=== PATIENT | female | born 1930 | race Caucasian/White ===

== ENCOUNTER 2017-05-03 06:20 | Emergency (ER) | payer MEDICARE, OTHER ==
--- NOTE | 2017-05-03 06:26 | ER Document Report ---
ED Respiratory Problem - General Mode of Arrival: Medic Information source: Patient, Emergency Med Personnel TRAVEL OUTSIDE OF THE [place] IN LAST 30 DAYS: No - HPI Patient complains to provider of: Short of breath Onset: Yesterday - 2300 Duration: Worse/persistent Severity: Severe Short of Breath: Moderate Similar symptoms previously: Yes Recently seen / treated by doctor: Yes <SILVIA RAJAN - Last Filed: 05/03/17 08:01> <MIKHAIL WAN - Last Filed: 05/03/17 09:22> - General Stated Complaint: DIFFICULTY BREATHING Time Seen by Provider: 05/03/17 06:25 Notes: Patient is an 86-year-old female that presents to the emergency department today secondary to absent breath sounds on the left side. According to EMS, they were in route from the patient's house to [facility] secondary to shortness of breath. 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 Patient states last night she had shortness of breath which began at 2300. EMS reports on arrival the patient had diminished breath sounds on the left and wheezing on the right. While in route to [facility], the patient had 5-6 forceful coughs and then began having increasing shortness of breath and was found to have absent breath sounds on the left. Patient denies any chest pain. (SILVIA RAJAN) - Related Data Allergies/Adverse Reactions: No Known Allergies Allergy (Unverified 01/19/14 20:24) Past Medical History - General Information source: Patient, Emergency Med Personnel - Social History Smoking Status: Former Smoker Cigarette use (# per day): No Frequency of alcohol use: None Drug Abuse: None Lives with: Family Family History: Reviewed & Not Pertinent - Past Medical History Cardiac Medical History: Reports: Hx Hypercholesterolemia, Hx Peripheral Vascular Disease Pulmonary Medical History: Reports: Hx COPD GI Medical History: Reports: Hx Gastroesophageal Reflux Disease Past Surgical History: Reports: Hx Cardiac Catheterization, Hx Orthopedic Surgery - Immunizations Hx Diphtheria, Pertussis, Tetanus Vaccination: Yes <SILVIA RAJAN - Last Filed: 05/03/17 08:01> Review of Systems - Review of Systems Constitutional: No symptoms reported EENT: No symptoms reported Cardiovascular: No symptoms reported Respiratory: See HPI, Short of breath, Wheezing Gastrointestinal: No symptoms reported Genitourinary: No symptoms reported Female Genitourinary: No symptoms reported Musculoskeletal: No symptoms reported Skin: No symptoms reported Hematologic/Lymphatic: No symptoms reported Neurological/Psychological: No symptoms reported -: Yes All other systems reviewed and negative <SILVIA RAJAN - Last Filed: 05/03/17 08:01> Physical Exam - General General appearance: Alert In distress: Moderate - HEENT Head: Normocephalic, Atraumatic Eyes: Normal Conjunctiva: Normal - Respiratory Respiratory status: Respiratory distress Breath sounds: Wheezing - throughout on the right, Other - Absent breath sounds on the left. - Cardiovascular Rhythm: Regular Heart sounds: Normal auscultation Murmur: No - Abdominal Inspection: Normal Distension: No distension Bowel sounds: Normal Tenderness: Nontender - Back Back: Normal, Nontender - Extremities General upper extremity: Normal inspection, Nontender. No: Edema General lower extremity: Normal inspection, Nontender. No: Edema - Neurological Neuro grossly intact: Yes Cognition: Normal Orientation: AAOx4 - Psychological Associated symptoms: Normal affect, Normal mood - Skin Skin Temperature: Warm Skin Moisture: Dry Skin Color: Normal <SILVIA RAJAN - Last Filed: 05/03/17 08:01> Course - Laboratory Result Diagrams: 05/03/17 06:25 05/03/17 06:25 <SILVIA RAJAN - Last Filed: 05/03/17 08:01> - Laboratory Result Diagrams: 05/03/17 06:25 05/03/17 06:25 - Diagnostic Test Radiology reviewed: Image reviewed, Reports reviewed - EKG Interpretation by Me EKG shows normal: Sinus rhythm, Kite, Intervals, QRS Complexes, ST-T Waves Rate: Normal - 94 Rhythm: NSR When compared to previous EKG there are: Previous EKG unavailable - Consults Dr. Segura Time consulted: 06:30 Consulted provider: will come to ER <MIKHAIL WAN - Last Filed: 05/03/17 09:22> - Re-evaluation Re-evalutation: 05/03/17 07:33 Dr. Segura came down to see the patient and placed a chest tube in the left chest allowing reexpansion to approximately 80% by the chest x-ray. There is some air leak continuing. 05/03/17 08:04 The patient receives care from physicians at [facility] to include internal medicine, pulmonary medicine, vascular surgery The patient and daughter are requesting she be transferred to [facility]. This is reasonable, given all her care is located there, and thoracic surgery is available if needed. 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 Vital signs stable, she is doing well. There is still some air leak. (MIKHAIL WAN) - Vital Signs Vital signs: Temp Pulse Resp BP Pulse Ox 22 H 140/72 H 99 05/03/17 09:01 05/03/17 09:01 05/03/17 09:01 - Laboratory Laboratory results interpreted by me: 05/03/17 05/03/17 06:25 06:25 RDW 15.9 H Seg Neuts % (Manual) 88 H Lymphocytes % (Manual) 8 L Monocytes % (Manual) 2 L Abs Neuts (Manual) 8.9 H Est GFR (Non-Af Amer) 57 L Glucose 126 H Critical Care Note - Critical Care Note Total time excluding time spent on procedures (mins): 30 <MIKHAIL WAN - Last Filed: 05/03/17 09:22> Discharge <SILVIA RAJAN - Last Filed: 05/03/17 08:01> <MIKHAIL WAN - Last Filed: 05/03/17 09:22> - Discharge Clinical Impression: Tension pneumothorax Condition: Stable Disposition: [facility] Referrals: ANTHONY CHARLTON MD [Primary Care Provider] - Follow up as needed Scribe Attestation: 05/03/17 09:10 I personally performed the services described in the documentation, reviewed and edited the documentation which was dictated to the scribe in my presence, and it accurately records my words and actions. (MIKHAIL WAN) Scribe Documentation - Scribe Written by Jared:: Jared Fields, 05/03/2017 [id number] acting as scribe for :: Ralph <SILVIA RAJAN - Last Filed: 05/03/17 08:01>
[2017-05-03 06:45] LABS: HEMATOCRIT 36.7 % (36.0-47.0); HGB HCT DIFFERENCE -0.7; MEAN CORPUSCULAR HEMOGLOBIN 28.6 pg (27.0-33.4); MEAN CORPUSCULAR HGB CONC 32.8 g/dL (32.0-36.0); MEAN CORPUSCULAR VOLUME 87 fl (80-97); RED BLOOD COUNT 4.21 10^6/uL (3.72-5.28); RED CELL DISTRIBUTION WIDTH 15.9 % (11.5-14.0); WHITE BLOOD COUNT 10.1 10^3/uL (4.0-10.5)
[2017-05-03] MEDS ORDERED: MIDAZOLAM 2 MG/2 ML INJ ONE (06:46)
[2017-05-03] MEDS ORDERED: LIDOCAINE 1% INJ-PF (10 MG/ML) 30 ML SDV ONE (06:48)
--- NOTE | 2017-05-03 06:49 | RADIOLOGY REPORT (SQ) ---
EXAM DESCRIPTION: CHEST SINGLE VIEW COMPLETED DATE/TIME: 05/03/2017 6:36 am REASON FOR STUDY: post L lung mass removal, acute SOB COMPARISON: None. EXAM PARAMETERS: NUMBER OF VIEWS: One view. TECHNIQUE: Single frontal radiographic view of the chest acquired. RADIATION DOSE: NA LIMITATIONS: None. FINDINGS: LUNGS AND PLEURA: Large left pneumothorax with might severe collapse. Small left basilar opacity. Mild right side interstitial markings. MEDIASTINUM AND HILAR STRUCTURES: No masses. Contour normal. HEART AND VASCULAR STRUCTURES: Heart normal in size. Atherosclerosis. BONES: No acute findings. HARDWARE: Bilateral total shoulder arthroplasty. OTHER: No other significant finding. IMPRESSION: Large left pneumothorax. COMMENT: This report was called to MIKHAIL WAN MD at06:41 on 05/03/2017. TECHNICAL DOCUMENTATION: JOB ID: [id number]
[2017-05-03 06:54] LABS: ALANINE AMINOTRANSFERASE 31 U/L (9-52); ALBUMIN 3.9 g/dL (3.5-5.0); ALKALINE PHOSPHATASE 83 U/L (38-126); ANION GAP 12 (5-19); ASPARTATE AMINO TRANSFERASE 32 U/L (14-36); BILIRUBIN,DIRECT 0.4 mg/dL (0.0-0.4); BILIRUBIN,TOTAL 0.7 mg/dL (0.2-1.3); BLOOD UREA NITROGEN 19 mg/dL (7-20); CALCIUM 9.9 mg/dL (8.4-10.2); CARBON DIOXIDE 22 mmol/L (22-30); CHLORIDE 106 mmol/L (98-107); CREATINE KINASE 79 U/L (30-135); CREATININE RESULT 0.93 mg/dL (0.52-1.25); GLUCOSE 126 mg/dL (75-110); POTASSIUM 4.9 mmol/L (3.6-5.0); SODIUM 139.9 mmol/L (137-145); TOTAL PROTEIN 7.3 g/dL (6.3-8.2)
[2017-05-03 07:06] LABS: CREATINE KINASE MB 1.03 ng/mL (<4.55); TROPONIN I 0.016 ng/mL
[2017-05-03] MEDS ORDERED: FENTANYL CITRATE INJ/PF 100 MCG/2 ML AMPUL IV ONE (07:08)
[2017-05-03] MEDS ORDERED: ONDANSETRON HCL INJ/PF 4 MG/2 ML SDV IV ONE (07:09)
--- NOTE | 2017-05-03 07:24 | RADIOLOGY REPORT (SQ) ---
EXAM DESCRIPTION: CHEST SINGLE VIEW COMPLETED DATE/TIME: 05/03/2017 7:15 am REASON FOR STUDY: post chest tube COMPARISON: 05/03/2017. EXAM PARAMETERS: NUMBER OF VIEWS: One view. TECHNIQUE: Single frontal radiographic view of the chest acquired. RADIATION DOSE: NA LIMITATIONS: None. FINDINGS: LUNGS AND PLEURA: Moderate left pneumothorax with pleural separation measuring 2.8 cm decr eased, status post left-sided chest tube. Small-moderate left basilar opacity -effusion. Mild inter stitial markings. MEDIASTINUM AND HILAR STRUCTURES: No masses. Contour normal. HEART AND VASCULAR STRUCTURES: Heart normal in size. Normal vasculature. BONES: No acute findings. HARDWARE: Left basilar chest tube. Moderate soft tissue emphysema of the lateral left lower hemithor ax. Bilateral total shoulder arthroplasty. OTHER: No other significant finding. IMPRESSION: Moderate left pneumothorax, with interval improvement. Left chest tube. Moderate left basilar opacity. TECHNICAL DOCUMENTATION: JOB ID: [id number]
[2017-05-03 07:41] LABS: ANISOCYTOSIS SLIGHT; BASOPHILS % (MANUAL) 1 % (0-2); EOSINOPHILS % (MANUAL) 1 % (0-6); HYPOCHROMASIA SLIGHT; LYMPHOCYTES % (MANUAL) 8 % (13-45); OVALOCYTES SLIGHT; PLATELET CLUMPS PRESENT; POIKILOCYTOSIS SLIGHT; TOTAL CELLS COUNTED 100; TOXIC VACUOLATION PRESENT
[2017-05-03 07:42] LABS: POLYCHROMASIA SLIGHT
[2017-05-03] MEDS ORDERED: IPRATROPIUM/ALBUTEROL 0.5-2.5 MG/3 ML AMPUL NEB ONE (07:45)
--- NOTE | 2017-05-03 08:39 | EKG REPORT ---
SEVERITY:- NORMAL ECG - SINUS RHYTHM : Confirmed by: Alvaro Conti 03-May-2017 08:38:07
[2017-05-03 09:39] VITALS: BP 159/78
--- NOTE | 2017-05-03 11:31 | OPERATIVE REPORT E ---
Operative Report NAME: RIANNA SCHMITZ : 1930 AGE: 86Y DATE OF SURGERY: 05/03/2017 ROOM: PREOPERATIVE DIAGNOSIS: Status post left thoracic surgery with recurrent pneumothorax, left chest. POSTOPERATIVE DIAGNOSIS: Status post left thoracic surgery with recurrent pneumothorax, left chest. PROCEDURE: Placement of left 24-Burundian thoracostomy tube. SURGEON: ANNIA MEJIA M.D. ANESTHESIA: 1% plain. COMPLICATIONS: None. ESTIMATED BLOOD LOSS: Scant. DRAINS: None. TISSUE REMOVED: None. SUMMARY OF PROCEDURE: Patient was placed in a semi-recumbent position. Left chest posterolaterally was exposed. It was prepped and draped in a sterile fashion. A surgical plan and surgical time out were conducted. Patient received appropriate level of Versed sedation. The skin was anesthetized with 1% lidocaine with epinephrine. A small 2.5-cm incision was made over the lateral chest superior to the previous mini thoracostomy sites. This was at approximately ICS 8. Elli clamp was used to enter the chest with a gush of air. A 24-Burundian chest tube was threaded into the left chest. Unfortunately, I could not get it directed apically. It was secured to the skin with the sentinel hole approximately 9 cm from the skin. Chest tube was secured with 0-silk suture, Xeroform, 4 x 4s, and hooked to Pleur-evac dressing chamber. There was an air leak. The patient tolerated the procedure well. Portable upright chest x-ray showed basilar placement of the chest tube, with sentinel hole in the chest, and partial but incomplete re-expansion of the left lung. DICTATING PHYSICIAN: ANNIA MEJIA M.D. [id number] PHY#: [id number] ID: [id number] JOB#: [id number] ACCT: [id number] cc:ANNIA MEJIA M.D. >
== END 2017-05-03 09:39 | disposition short-term general hospital (02) ==
LOC: ER 06:20
PROC: 0W9B30Z Drainage of Left Pleural Cavity with Drainage Device, Percutaneous Approach (ICD-10-PCS; principal; 2017-05-03)
DX: J93.0 Spontaneous tension pneumothorax (principal); R06.02 Shortness of breath; Z87.891 Personal history of nicotine dependence; E78.00 Pure hypercholesterolemia, unspecified
CPT/HCPCS: 93005; 94640; 99291; 96374; 36415; 82553; 82550; 85025; 80053; 84484; 71010; 93010; 32551; J2250; J3010; J3490; J2405; A9270; J7620

== ENCOUNTER → 2019-01-17 | Day surgery (SDC) | payer MEDICARE, OTHER ==
[~2019-01-17] MED LIST: BUPIVACAINE HCL 0.5 % INJ/PF 30 ML SDV ONE; METHYLPREDNISOLONE ACETATE INJ 80 MG/1 ML VIAL ONE
--- NOTE | 2019-01-17 14:16 | RADIOLOGY REPORT (SQ) ---
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 FLUOROSCOPY TIME: 13 seconds 2 digital fluoroscopic images saved to PACS. LIMITATIONS: None. PROCEDURE: SITE OF INJECTION: Right hip joint space LOCALIZING CONTRAST TYPE AND DOSE: 0.5 mL of Omnipaque 350 MEDICATION TYPE AND DOSE: 80 mg of Depo-Medrol, 5 mL of 0.5% bupivacaine Using local anesthesia and sterile technique with fluoroscopic guidance, the needle was advanced into the joint. Iodinated contrast was injected to verify intraarticular placement. This was followed by therapeutic injection of the indicated medications. The needle was removed. There were no immediat e complications. Preprocedure pain level: 9 out of 10 Postprocedure pain level: 0 out of 10 IMPRESSION: THERAPEUTIC INJECTION OF THE RIGHT HIP JOINT ABOVE. COMMENT: Patient medication list reviewed: Yes- Quality ID# [id number]:Eligible professional attests to doc umenting in the medical record they obtained, updated, or reviewed the patient's current medications. . Quality ID [id number]: Final reports for procedures using fluoroscopy that document radiation exposure cheryl stu, or exposure time and number of fluorographic images (if radiation exposure indices are not avail able) TECHNICAL DOCUMENTATION: JOB ID: [id number] [employer]- All Rights Reserved Reading location - IP/workstation name: [email or web address]
== END ==
LOC: RAD 12:46
PROVIDERS: ATTEND Orthopaedic Surgery Sports Medicine
DX: M16.11 Unilateral primary osteoarthritis, right hip (principal)
CPT/HCPCS: 20610; 77002; J3490; J1040

== ENCOUNTER 2020-06-08 00:59 | Emergency (ER) | payer MEDICARE, OTHER ==
[2020-06-08] MEDS ORDERED: IPRATROPIUM/ALBUTEROL 0.5-2.5 MG/3 ML AMPUL NEB ONE (02:00)
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
[2020-06-08 02:36] LABS: ABSOLUTE EOSINOPHILS # (AUTO) 0.2 10^3/uL (0.0-0.6); ABSOLUTE LYMPHOCYTES (AUTO) 0.6 10^3/uL (0.5-4.7); ABSOLUTE MONOCYTES (AUTO) 0.3 10^3/uL (0.1-1.4); ABSOLUTE NEUT (AUTO) 5.5 10^3/uL (1.7-8.2); BASOPHILS % (AUTO) 0.5 % (0-2); EOSINOPHILS % (AUTO) 2.3 % (0-6); HEMOGLOBIN 10.5 g/dL (12.0-15.5); LYMPHOCYTES % (AUTO) 8.5 % (13-45); MEAN CORPUSCULAR HEMOGLOBIN 27.6 pg (27.0-33.4); MEAN CORPUSCULAR HGB CONC 32.9 g/dL (32.0-36.0); MEAN CORPUSCULAR VOLUME 84 fl (80-97); MONOCYTES % (AUTO) 5.1 % (3-13); PLATELET COUNT 299 10^3/uL (150-450); RED BLOOD COUNT 3.82 10^6/uL (3.72-5.28); RED CELL DISTRIBUTION WIDTH 15.2 % (11.5-14.0); SEGMENTED NEUTROPHILS % (AUTO) 83.6 % (42-78); TOTAL CELLS COUNTED % (AUTO) 100 %; WHITE BLOOD COUNT 6.6 10^3/uL (4.0-10.5)
[2020-06-08 02:50] LABS: ALBUMIN 3.7 g/dL (3.5-5.0); ALKALINE PHOSPHATASE 79 U/L (38-126); ANION GAP 6 (5-19); ASPARTATE AMINO TRANSFERASE 28 U/L (14-36); BILIRUBIN,TOTAL 0.8 mg/dL (0.2-1.3); BLOOD UREA NITROGEN 20 mg/dL (7-20); CALCIUM 9.5 mg/dL (8.4-10.2); CARBON DIOXIDE 29 mmol/L (22-30); CHLORIDE 106 mmol/L (98-107); GLUCOSE 111 mg/dL (75-110); POTASSIUM 4.3 mmol/L (3.6-5.0); TOTAL PROTEIN 6.5 g/dL (6.3-8.2)
[2020-06-08] MEDS ORDERED: FENTANYL CITRATE INJ/PF 100 MCG/2 ML AMPUL IV ONE (02:50)
--- NOTE | 2020-06-08 04:15 | RADIOLOGY REPORT (SQ) ---
CHEST X-RAY 2 view on 06/08/2020 at 3:36 AM CLINICAL INDICATION: Right rib pain after fall COMPARISON: 05/03/2017 FINDINGS: Implantable cardiac recording device is noted in the left anterior chest wall. The patient is status post bilateral shoulder arthroplasties. Vascular calcification is noted in the aorta. Mild chronic interstitial changes are noted. The lungs are otherwise clear. Cardiac, hilar and mediastinal contours are within normal limits. No definite acute rib fracture is noted. IMPRESSION: No acute disease.
--- NOTE | 2020-06-08 04:16 | RADIOLOGY REPORT (SQ) ---
CLINICAL INDICATION: fall. Pain. TECHNIQUE: 1 view(s) were obtained of the right hip. 1 view(s) were obtained of the left hip. Single AP view of the pelvis. COMPARISON: None. FINDINGS: Right: No acute displaced fracture is identified of the hip. Alignment appears anatomic. Osteoarthritis. Surrounding soft tissues are unremarkable. Left: No acute displaced fracture is identified of the hip. Alignment appears anatomic. Osteoarthritis. Metallic stent left iliac system. IMPRESSION: No evidence of acute displaced fracture of either hip. Osteoarthritis
--- NOTE | 2020-06-08 04:19 | RADIOLOGY REPORT (SQ) ---
EXAM DESCRIPTION: [facility]: XR LUMBAR SPINE ANTEROPOSTERIOR, LATERAL, AND OBLIQUES Views: 4 CLINICAL HISTORY: 89 years Female; fall, low back pain; COMPARISON: None. FINDINGS: Alignment is anatomic. Bilateral facet arthropathy at L2-L3 through L5-S1, most severe at L4-L5 and L5-S1. Vertebral heights are preserved. Disc spaces are preserved. No acute fracture. No suspicious lytic or blastic lesion. Extensive aortic calcification is noted. A left common iliac artery stent is noted. IMPRESSION: 1. Degenerative changes with multilevel facet arthropathy. 2. No acute fracture or subluxation.
[2020-06-08 05:13] VITALS: BP 132/78
== END 2020-06-08 05:13 | disposition left against medical advice (07) ==
LOC: ER 00:59
DX: S20.211A Contusion of right front wall of thorax, initial encounter (principal); R10.11 Right upper quadrant pain; R07.81 Pleurodynia; M54.5 Low back pain; R10.9 Unspecified abdominal pain; W19.XXXA Unspecified fall, initial encounter; Z79.01 Long term (current) use of anticoagulants; Z79.899 Other long term (current) drug therapy; Z87.891 Personal history of nicotine dependence; J44.9 Chronic obstructive pulmonary disease, unspecified
CPT/HCPCS: 94640; 99284; 96374; 36415; 85025; 80053; 71046; 72110; 73522; J3010